=== PATIENT | female | born 1990 | race American Indian/Alaskan Native ===

== ENCOUNTER 2017-01-17 10:41 | Emergency (ER) | payer MEDICAID ==
[2017-01-17 11:02] VITALS: BP 115/73
[2017-01-17 11:56] LABS: Hemoglobin 12.7 gm/dl (10.1-14.3); Mean Corpuscular HGB Conc 33 % (30-34); Mean Corpuscular Hemoglobin 29 pg (28-32); Mean Corpuscular Volume 88 fl (79-97); Platelet Count 304 K/mm3 (140-440); Red Blood Count 4.42 M/mm3 (3.65-5.03); Red Cell Distribution Width 12.7 % (13.2-15.2); White Blood Count 6.3 K/mm3 (4.5-11.0)
--- NOTE | 2017-01-17 12:04 | Emergency Department Report ---
ED General Adult HPI - General Chief complaint: Dental/Oral Stated complaint: CHEST PAIN Source: patient Mode of arrival: Ambulatory Limitations: No Limitations - History of Present Illness Initial comments: 26 y/o F with no significant PMHX presents with a wisdom tooth pain and infection, pt states that she has this issue ongoing for the past 2 months. Pt states that she is supposed to get implants in within the next 6 months. She states that she was in a lot of pain last night and took goody powder and 2 advils and then experienced chest tightness and pain since last night. She also complains of an infected nipple piercing, she states that she had noticed some oozing, pus, and drainage for the site.- right nipple. She states that she got the piercing about 3-4 months ago and states that she hit the area about 1.5 weeks ago and since then she has noticed pain and discomfort. Pt is currently on DEPO and is unsure of LMP. She denies any SOB, BLURRIED VISION, headache, calf pain, hx of blood clot, neck pain/stiffness, fever, chills, cough , or congestion. No reported hx of palpitations. NKDA. -: week(s) (2 weeks ago wisdom teeth cracked) Location: mouth, chest Radiation: non-radiation Quality: constant Consistency: constant Worsens with: other (pain increases with laying down) Associated Symptoms: chest pain. denies: confusion, cough, fever/chills, headaches, loss of appetite, nausea/vomiting, seizure, shortness of breath, weakness Treatments Prior to Arrival: other (goody powder and 2 advils) - Related Data Previous Rx's Medication Instructions Recorded Last Taken Type Acetaminophen/Codeine [Tylenol 1 tab PO Q6H PRN #20 tab 01/17/17 Unknown Rx /Codeine # 3 tab] Clindamycin [Clindamycin CAP] 300 mg PO Q8H #30 cap 01/17/17 Unknown Rx Allergies Allergy/AdvReac Type Severity Reaction Status Date / Time No Known Allergies Allergy Verified 12/15/12 02:24 ED Review of Systems ROS: Stated complaint: CHEST PAIN Other details as noted in HPI Constitutional: denies: chills, fever, malaise, weakness Eyes: denies: eye pain, eye discharge, vision change ENT: dental pain (wisdom teeth), other (no throat pain or tightness) Respiratory: denies: cough, shortness of breath, wheezing Cardiovascular: chest pain. denies: palpitations Gastrointestinal: denies: abdominal pain, nausea, diarrhea Genitourinary: denies: urgency, dysuria, discharge Musculoskeletal: denies: back pain, joint swelling, arthralgia Skin: other (reports to pus coming from nipple piercing of the right breast) Neurological: denies: headache, weakness, paresthesias Psychiatric: denies: anxiety, depression ED Past Medical Hx - Past Medical History Previous Medical History?: No Hx Hypertension: No Hx Diabetes: No Hx Deep Vein Thrombosis: No Hx Renal Disease: No Hx Sickle Cell Disease: No Hx Seizures: No Hx Asthma: No - Surgical History Past Surgical History?: No - Social History Smoking Status: Never Smoker Substance Use Type: None - Medications Home Medications: Home Medications Medication Instructions Recorded Confirmed Last Taken Type Acetaminophen/Codeine [Tylenol 1 tab PO Q6H PRN #20 tab 01/17/17 Unknown Rx /Codeine # 3 tab] Clindamycin [Clindamycin CAP] 300 mg PO Q8H #30 cap 01/17/17 Unknown Rx ED Physical Exam - General Limitations: No Limitations General appearance: alert, in no apparent distress - Head Head exam: Present: atraumatic, normocephalic, normal inspection - Eye Eye exam: Present: normal appearance - ENT ENT exam: Present: other (poor dentition) - Expanded ENT Exam Expanded Ear exam: Present: normal external inspection Mouth exam: Present: normal external inspection Teeth exam: Present: dental caries, fractured tooth # (refer to dental image for #) 1 - Fractured, Dental Tenderness, Other (small abscess) 2 - Fractured, Dental Tenderness, Other (small abscess) 3 - Fractured Throat exam: Positive: normal inspection, other (airway was patent, no signs of respiratory distress) - Neck Neck exam: Present: normal inspection, full ROM - Respiratory Respiratory exam: Present: normal lung sounds bilaterally. Absent: respiratory distress - Cardiovascular Cardiovascular Exam: Present: regular rate, normal rhythm. Absent: systolic murmur, diastolic murmur, rubs, gallop - GI/Abdominal GI/Abdominal exam: Present: soft, normal bowel sounds - Extremities Exam Extremities exam: Present: normal inspection - Back Exam Back exam: Present: normal inspection - Neurological Exam Neurological exam: Present: alert, oriented X3, CN II-XII intact, normal gait - Expanded Neurological Exam Expanded Patient oriented to: Present: person, place, time Speech: Present: fluid speech Cranial nerves: EOM's Intact: Normal Motor strength exam: RUE: 5, LUE: 5, RLE: 5, LLE: 5 Best Eye Response ([place]): (4) open spontaneously Best Motor Response ([place]): (6) obeys commands Best Verbal Response ([place]): (5) oriented [place] Total: 15 - Psychiatric Psychiatric exam: Present: normal affect, normal mood - Skin Skin exam: Present: warm (there was a nipple bar pircing noted, mildly raised no acitve pus or drainage noted- right nipple), dry, intact, normal color, other (there was no swelling of the mouth or face, no rashes noted). Absent: rash ED Course Vital Signs 01/17/17 01/17/17 11:00 12:02 Temperature 98.7 F Pulse Rate 89 Respiratory 16 18 Rate Blood Pressure 115/73 O2 Sat by Pulse 100 99 Oximetry ED Medical Decision Making - Lab Data Result diagrams: 01/17/17 11:40 01/17/17 11:43 - EKG Data When compared to previous EKG there are: previous EKG unavailable Interpretation: normal EKG, other (sinus rhythm, normal P axis, V-rate 50-99, MS : 161, QRSD: 81, QT: 358, QTc: 398) 01/18/17 20:[address]: P- 65 QRS: 48 T: 33 Normal EKG in sinus rhythm - Radiology Data Radiology results: report reviewed, image reviewed Chest XR: essentially unremarkable, no definite acute cardiopulmonary findings. - Medical Decision Making Pt was nontoxic in appearance, speaking in full sentences and watching TV throughout stay. Case was discussed in detail with Dr. Morales who looked through all the labs and imaging results obtained. UA, urine culture, HCG, creatine kinase, MB, CK, BNP, d-dimer, troponin T, CMP CBC, CMP, Chest XR, and EKG all of which were essentially unremarkable. Pt has an infected nipple piercing, uti , and dental pain/abscess. Therefore, I have treated with clindamycin and tylenol #[address] Morales is in agreement with plan of care. Pt was encouraged to eat probotics with the antibiotic as it can upset the stomach she reports to understanding. Pt was discharged in stable condition, no resp distress, alert and oriented. Referrals to PCP and cardiology were made today. Critical care attestation.: If time is entered above; I have spent that time in minutes in the direct care of this critically ill patient, excluding procedure time. ED Disposition Clinical Impression: Breast infection, Tooth pain Chest pain Qualifiers: Chest pain type: other chest pain Qualified Code(s): R07.89 - Other chest pain UTI (urinary tract infection) Qualifiers: Urinary tract infection type: acute cystitis Hematuria presence: without hematuria Qualified Code(s): N30.00 - Acute cystitis without hematuria Disposition: TO HOME OR SELFCARE Is pt being admited?: No Does the pt Need Aspirin: No Condition: Stable Instructions: Chest Pain (ED), Urinary Tract Infection in Women (ED), Dental Abscess (ED) Additional Instructions: Please complete your full course of antibiotic. Please be advised that this pain medication can cause you to be drowsy do not take with driving or operating heavy machinery. Please follow-up with dentist and PCP within this week. Return to the ER immediately if your presenting symptoms acutely worsen. Prescriptions: Acetaminophen/Codeine [Tylenol /Codeine # 3 tab] 1 tab PO Q6H PRN #20 tab PRN Reason: Pain Clindamycin [Clindamycin CAP] 300 mg PO Q8H #30 cap Referrals: [facility] [Outside] - 3-5 Days [facility] [Outside] - 3-5 Days [facility] [Outside] - 3-5 Days JO SAHNI MD [Staff Physician] - 3-5 Days PRIMARY MD CHARBEL [Primary Care Provider] - 3-5 Days Forms: Accompanied Note, Work/School Release Form(ED)
[2017-01-17 12:17] LABS: Alanine Aminotransferase 14 units/L (7-56); Albumin 3.7 g/dL (3.9-5); Albumin/Globulin Ratio 1.2 %; Alkaline Phosphatase 77 units/L (35-129); Anion Gap 17 mmol/L; BUN/Creatinine Ratio 17; Blood Urea Nitrogen 10 mg/dL (7-17); Calcium 8.4 mg/dL (8.4-10.2); Carbon Dioxide 23 mmol/L (22-30); Glucose 100 mg/dL (65-100); Potassium 4.2 mmol/L (3.6-5.0); Sodium 140 mmol/L (137-145); Total Protein 6.9 g/dL (6.3-8.2)
[2017-01-17 12:42] LABS: Basophils % (Manual) 0 % (0.0-1.8); Blastocytes % (Manual) 0 %
[2017-01-17 12:44] LABS: Anisocytosis 1+; Diff Status Complete; Microcytosis Few; Ovalocytes Few; Tear Drop Cells Rare
--- NOTE | 2017-01-17 12:59 | XRay Report ---
Chest 2 views: History: Chest tightness. Findings: Normal cardiomediastinal silhouette. Trachea is midline. No consolidation, pneumothorax or pleural effusion. Impression: No definite acute cardiopulmonary findings.
[2017-01-17 13:46] LABS: Mucus,Urine 1+ /HPF
[2017-01-17 13:47] LABS: Bilirubin,Urine NEG (Negative); Blood,Urine MOD (Negative); Ketones,Urine NEG (Negative); Leukocyte Esterase,Urine SM (Negative); Nitrite,Urine NEG (Negative); Protein,Urine <15 mg/dL mg/dL (Negative)
== END 2017-01-17 14:22 | disposition home or self-care (01) ==
LOC: ED 10:41
DX: N61.0 Mastitis without abscess (principal); K08.89 Other specified disorders of teeth and supporting structures; R07.89 Other chest pain; N30.00 Acute cystitis without hematuria
CPT/HCPCS: 36415; 71020; 80053; 81001; 81025; 82550; 82553; 83880; 84484; 85007; 85025; 85379; 87086; 93005; 93010

== ENCOUNTER 2018-05-26 09:29 | Emergency (ER) | payer MEDICAID ==
[2018-05-26 09:38] VITALS: BP 139/77
[2018-05-26] MEDS ORDERED: ULTRAM PO ONE (11:09)
[2018-05-26] MEDS ORDERED: ULTRAM ONE (11:11)
[2018-05-26 11:24] LABS: Bacteria,Urine 1+ /HPF (Negative); Bilirubin,Urine NEG (Negative); Blood,Urine NEG (Negative); Color,Urine Yellow (Yellow); Mucus,Urine 2+ /HPF
[2018-05-26 11:29] LABS: HCG Qualitative,Urine Negative (Negative)
--- NOTE | 2018-05-26 11:59 | Emergency Department Report ---
ED Headache HPI - General Chief Complaint: Headache Stated Complaint: HEADACHE Time Seen by Provider: 05/26/18 10:06 - History of Present Illness Initial Comments: Patient is a 27-year-old [place] female who is presenting with a headache. Patient states had a frontal headache for the last 2-3 days. Patient states the headache is a pressure sensation and states that she also feels very congested. Patient has had nosebleeds and some bloody mucus from the nose. Patient also comes complaining of a week of lower back discomfort. Low back discomfort is worse with movement. 6 out of 10 and achy. Patient denies any vaginal bleeding vaginal discharge dysuria cough cold congestion fevers chills or sore throat at this time. Allergies/Adverse Reactions: Allergies No Known Allergies Allergy (Verified 12/15/12 02:24) Home Medications: Ambulatory Orders Acetaminophen/Codeine [Tylenol /Codeine # 3 tab] 1 tab PO Q6H PRN #20 tab 01/17/17 Clindamycin [Clindamycin CAP] 300 mg PO Q8H #30 cap 01/17/17 Amoxicillin/Potassium Clav [Augmentin 875-125 Tablet] 1 each PO BID #14 tablet 05/26/18 Fluticasone [Flonase] 1 spray NS QDAY #1 bottle 05/26/18 predniSONE [Deltasone] 20 mg PO QDAY #5 tab 05/26/18 traMADol [Ultram] 50 mg PO Q6HR PRN #12 tablet 05/26/18 ED Review of Systems ROS: Stated complaint: HEADACHE Other details as noted in HPI Comment: All other systems reviewed and negative ED Past Medical Hx - Past Medical History Hx Hypertension: No Hx Diabetes: No Hx Deep Vein Thrombosis: No Hx Renal Disease: No Hx Sickle Cell Disease: No Hx Seizures: No Hx Asthma: No - Surgical History Past Surgical History?: No - Social History Smoking Status: Never Smoker Substance Use Type: None - Medications Home Medications: Home Medications Medication Instructions Recorded Confirmed Last Taken Type Acetaminophen/Codeine [Tylenol 1 tab PO Q6H PRN #20 tab 01/17/17 Unknown Rx /Codeine # 3 tab] Clindamycin [Clindamycin CAP] 300 mg PO Q8H #30 cap 01/17/17 Unknown Rx Amoxicillin/Potassium Clav 1 each PO BID #14 tablet 05/26/18 Unknown Rx [Augmentin 875-125 Tablet] Fluticasone [Flonase] 1 spray NS QDAY #1 bottle 05/26/18 Unknown Rx predniSONE [Deltasone] 20 mg PO QDAY #5 tab 05/26/18 Unknown Rx traMADol [Ultram] 50 mg PO Q6HR PRN #12 tablet 05/26/18 Unknown Rx ED Physical Exam - General Limitations: No Limitations General appearance: alert, in no apparent distress - Head Head exam: Present: atraumatic, normocephalic - Eye Eye exam: Present: normal appearance - ENT ENT exam: Present: mucous membranes moist, other (frontal sinus tenderness) - Neck Neck exam: Present: normal inspection - Respiratory Respiratory exam: Present: normal lung sounds bilaterally. Absent: respiratory distress, wheezes, rales, rhonchi - Cardiovascular Cardiovascular Exam: Present: regular rate, normal rhythm. Absent: systolic murmur, diastolic murmur, rubs, gallop - GI/Abdominal GI/Abdominal exam: Present: soft, normal bowel sounds. Absent: distended, tenderness, guarding, rebound, rigid - Extremities Exam Extremities exam: Present: normal inspection - Back Exam Back exam: Present: normal inspection - Neurological Exam Neurological exam: Present: alert, oriented X3 - Psychiatric Psychiatric exam: Present: normal affect, normal mood - Skin Skin exam: Present: warm, dry, intact, normal color. Absent: rash ED Course Vital Signs 05/26/18 05/26/18 09:31 11:12 Temperature 98.5 F Pulse Rate 96 H Respiratory 16 18 Rate Blood Pressure 139/77 O2 Sat by Pulse 99 Oximetry ED Medical Decision Making - Lab Data Lab Results 05/26/18 Range/Units Unknown Urine Color Yellow (Yellow) Urine Turbidity Clear (Clear) Urine pH 6.0 (5.0-7.0) Ur Specific [place] 1.033 H (1.003-1.030) Urine Protein 30 mg/dl (Negative) mg/dL Urine Glucose (UA) Neg (Negative) mg/dL Urine Ketones Tr (Negative) mg/dL Urine Blood Neg (Negative) Urine Nitrite Neg (Negative) Urine Bilirubin Neg (Negative) Urine Urobilinogen 4.0 (<2.0) mg/dL Ur Leukocyte Esterase Mod (Negative) Urine WBC (Auto) 4.0 (0.0-6.0) /HPF Urine RBC (Auto) 24.0 (0.0-6.0) /HPF U Epithel Cells (Auto) 9.0 (0-13.0) /HPF Urine Bacteria (Auto) 1+ (Negative) /HPF Urine Mucus 2+ /HPF Urine HCG, Qual Negative (Negative) - Medical Decision Making Patient does have some frontal sinus tenderness and with her history of congestion and bloody rhinorrhea patient likely does have acute sinusitis which will be treated. Patient with a mild UTI as well and the Augmentin that we prescribe should cover this as well. Critical care attestation.: If time is entered above; I have spent that time in minutes in the direct care of this critically ill patient, excluding procedure time. ED Disposition Clinical Impression: Acute sinusitis Qualifiers: Sinusitis location: frontal Recurrence: non-recurrent Qualified Code(s): J01.10 - Acute frontal sinusitis, unspecified UTI (urinary tract infection) Qualifiers: Urinary tract infection type: acute cystitis Hematuria presence: with hematuria Qualified Code(s): N30.01 - Acute cystitis with hematuria Disposition: TO HOME OR SELFCARE Is pt being admited?: No Does the pt Need Aspirin: No Condition: Stable Instructions: Sinusitis (ED), Urinary Tract Infection in Women (ED) Time of Disposition: 12:00
== END 2018-05-26 12:09 | disposition home or self-care (01) ==
LOC: ED 09:29
DX: J01.10 Acute frontal sinusitis, unspecified (principal); N30.01 Acute cystitis with hematuria
CPT/HCPCS: 81001; 81025